=== PATIENT | female | born 1970 | race Caucasian/White ===

== ENCOUNTER 2017-06-21 09:36 | Outpatient (CLI) | payer OTHER | END 2017-06-21 19:49 | disposition home or self-care (01) | LOC: EEVIPCON 09:36 → SMI 09:36 | PROVIDERS: ATTEND Internal Medicine | DX: G35 Multiple sclerosis (principal) | CPT/HCPCS: 70551 ==

== ENCOUNTER 2017-06-22 11:08 | Outpatient (CLI) | payer OTHER ==
[2017-06-22] MEDS ORDERED: GADOPENTETATE DIMEGLUMINE 15 ML VIAL IV ONE (11:35)
== END 2017-06-22 19:02 | disposition home or self-care (01) ==
LOC: SMI 11:08
PROVIDERS: ATTEND Psychiatry & Neurology Neurology
DX: R56.9 Unspecified convulsions (principal)
CPT/HCPCS: 70553; A9579